=== PATIENT | male | born 1950 | race African-American/Black ===

== ENCOUNTER 2016-10-15 05:36 | Day surgery (SDC) | payer MEDICARE, BC ==
[~2016-10-15] VITALS: Ht 181.6 cm; Wt 137.4 kg
[2016-10-15] VITALS (12 sets, daily range): BP systolic 127–145; BP diastolic 61–75
[~2016-10-15 05:36] MED LIST: ATENOLOL50 MG ORAL; ATORVASTATIN CA20 MG ORAL; DILTIAZEM ER300 MG PO
[2016-10-15] MEDS ORDERED: ceFAZolin sod 1 GM in NS 55 ML IVPB ONE (07:00)
[2016-10-15] MEDS ORDERED: Bacitracin 50000 Units Vial ONE ×2 (07:19→09:46)
[2016-10-15] MEDS ORDERED: Midazolam 2mg/2ml Inj ONE (07:30)
[2016-10-15] MEDS ORDERED: Sterile Water Irrig 1000ml IRRIG ONE (07:30)
[2016-10-15] MEDS ORDERED: NS Irrig 1000ml ONE (07:30)
[2016-10-15] MEDS ORDERED: LR 1000ml ONE (07:30)
[2016-10-15] MEDS ORDERED: fentaNYL 100 mcg/2 mL IV ONE (07:30)
[2016-10-15] MEDS ORDERED: Propofol 10mg/ml 20ml IV ONE (07:30)
--- NOTE | 2016-10-15 07:50 | Pre-Procedure Note/Attestation ---
Pre-Procedure Note/Attestation Complete Prior to Procedure Planned Procedure: not applicable Procedure Narrative: REMOVAL OF SEMIRIGID AND SUB CUTANEOUS PENILE IMPLANT AND INSERTION OF INFLATABLE PENILE IMPLANT Indications for Procedure Pre-Operative Diagnosis: NON FUNCTIONING PENILE IMPLANT, SEVERE ERECTILE DYSFUNCTION Attestation I attest that I discussed the nature of the procedure; its benefits; risks and complications; and alternatives (and the risks and benefits of such alternatives ), prior to the procedure, with the patient (or the patient's legal kiosk sales representative). I attest that, if there was a reasonable possibility of needing a blood transfusion, the patient (or the patient's legal kiosk sales representative) was given the [place] [employer] standardized written summary, pursuant to the Trev Hilton Blood Safety Act ([place] Health and Safety Code # 1645, as amended). I attest that I re-evaluated the patient just prior to the surgery and that there has been no change in the patient's H&P, except as documented below: Ryan Barcenas MD Oct 15, 2016 07:50
[2016-10-15] MEDS ORDERED: LR 1000ml 1,000 ML IVLG SCH (07:51)
--- NOTE | 2016-10-15 07:57 | Anethesia Preoperative Eval ---
Anesthesia Pre-op PMH/ROS General Date of Evaluation: Oct 15, 2016 Time of Evaluation: 07:20 Anesthesiologist: Juan ASA Score: ASA 3 Mallampati Score Class I : Soft palate, uvula, fauces, pillars visible Class II: Soft palate, uvula, fauces visible Class III: Soft palate, base of uvula visible Class IV: Only hard plate visible Mallampati Classification: Class II Surgeon: Narinder Diagnosis: Erectile dysfunction Surgical Procedure: Replacement of penile implant Family History: no anesthesia problems Allergies: Coded Allergies: PENICILLINS (Verified Allergy, Unknown, 10/12/16) ITCH Medications: see eMAR Past Medical History Cardiovascular: Reports: HTN, Denies: CAD, [place], arrhythmia, other, valve dz Pulmonary: Reports: KASIA, Denies: COPD, asthma, other Gastrointestinal/Genitourinary: Denies: CRI, ESRD, GERD, other Neurologic/Psychiatric: Denies: CVA, TIA, dementia, depression/anxiety, other Endocrine: Denies: DM, hypothyroidism, other, steroids HEENT: Denies: MARY'S IGLOO (L), MARY'S IGLOO (R), cataract (L), cataract (R), glaucoma, other Hematology/Immune: Denies: DVT, anemia, bleeding disorder, other Musculoskeletal/Integumentary: Reports: OA, Denies: DDD, DJD, RA, edema, other Other: obesity PMH Narrative: KASIA, obesity, HTN, hypercholesterolemia, OA PSxH Narrative: Penile implant Anesthesia Pre-op Phys. Exam Physician Exam Last Vital Signs Date Time Temp Pulse Resp B/P Pulse Ox O2 Delivery O2 Flow Rate FiO2 10/15/16 05:57 98.3 63 20 140/73 95 Room Air Constitutional: NAD Neurologic: CN 2-12 intact Cardiovascular: RRR, no M/R/G Respiratory: CTA Airway Exam Mallampati Score: Class II MO: full ROM: full Teeth: intact Anesthesia Pre-op A/P Labs WNL Studies Pre-op Studies: EKG - SR, no acute abnormality Risk Assessment & Plan Assessment: Obese, hypertensive male with KASIA Plan: GA, LMA Status Change Before Surgery: No Pre-Antibiotics Drug: Ancef Given Within 1 Hr of Incision: Yes Time Given: 07:45 AMRIK KAUR M.D. Oct 15, 2016 07:57
--- NOTE | 2016-10-15 07:58 | Immediate Post-Op Evaluation ---
Immediate Post-Op Evalulation Immediate Post-Op Evalulation Procedure: Replacement of penile implant Date of Evaluation: Oct 15, 2016 Time of Evaluation: 10:50 IV Fluids: 900 Estimated Blood Loss: 70 Urinary Output: 500 Blood Pressure Systolic: 145 Blood Pressure Diastolic: 75 Pulse Rate: 66 Respiratory Rate: 17 O2 Sat by Pulse Oximetry: 100 Temperature (Fahrenheit): 97 Pain Score (1-10): 0 Nausea: No Vomiting: No Complications No complication Patient Status: awake, patent, none Hydration Status: adequate Drug: Ancef Given Within 1 Hr of Incision: Yes Time Given: 07:45 AMRIK KAUR M.D. Oct 15, 2016 07:58
[2016-10-15] MEDS ORDERED: DiphenhydrAMINE 50mg/ml Inj IVP PRN (08:00)
[2016-10-15] MEDS ORDERED: LR 1000ml 1,000 ML IV SCH (08:00)
[2016-10-15] MEDS: Bupivacaine 0.5% Inj 30 ml vial INJ ONE ×2 (09:29→10:11)
--- NOTE | 2016-10-15 10:47 | 48 Hour Post Anesthesia Eval ---
Post Anesthesia Evaluation Procedure: Replacement of penile implant Date of Evaluation: Oct 15, 2016 Time of Evaluation: 11:15 Blood Pressure Systolic: 142 0: 74 Pulse Rate: 68 Respiratory Rate: 20 Temperature (Fahrenheit): 97 O2 Sat by Pulse Oximetry: 99 Airway: patent Nausea: No Vomiting: No Pain Intensity: 1 Hydration Status: adequate Cardiopulmonary Status: Stable Mental Status/LOC: patient returned to baseline Follow-up Care/Observations: As per surgery Post-Anesthesia Complications: No anesthetic complication Follow-up care needed: N/A AMRIK KAUR M.D. Oct 15, 2016 10:47
[2016-10-15] MEDS: Hydromorphone 0.5mg/0.5ml inj IVP PRN ×2 (11:07→11:49)
--- NOTE | 2016-10-17 12:49 | Brief Operative Note ---
Immediate Post Operative Note Operative Note Pre-op Diagnosis: NON FUNCTIONING PENILE IMPLANT, SEVERE ERECTILE DYSFUNCTION Procedure: REMOVAL OF SUBCUTANEOUS AND SEMIRIGID IMPLANT AND INSERTION OF INFLATABLE PENILE PROSTHESIS Post-op Diagnosis: SAME Post-op Diagnosis: same as pre-op Surgeon: Marcial BARCENAS Anesthesia: general Specimen: yes Complications: none Condition: stable Estimated Blood Loss: minimal Drains: SUKHWINDER Implant(s) used?: Yes Ryan Barcenas MD Oct 17, 2016 12:49
--- NOTE | 2016-10-18 00:31 | Operative Note - Dictated ---
DATE OF OPERATION: 10/15/2016 PREOPERATIVE DIAGNOSIS: Nonfunctioning semirigid penile implant. POSTOPERATIVE DIAGNOSIS: Nonfunctioning semirigid penile implant. SURGEON: Ryan Barcenas M.D. PROCEDURE: Removal of subcutaneous as well as semirigid penile prosthesis and insertion of Ambicor #18 plus 2 penile prosthesis. INDICATIONS: This patient has been known to me for many years. Originally, the patient was complaining about erectile dysfunction and insertion of the penile prosthesis after failure of medical treatment was offered to the patient. The patient decided to proceed with a semirigid penile prosthesis at that time and although an inflatable penile prosthesis also was introduced to him, he decided to go with the semirigid, which was inserted without any difficulty. Years later, due to the change in the girth of his penis and unsatisfactory girth, subcutaneous penile implant was inserted for the patient. The patient has been happy with both procedures. Recently, states that his penis bends during sexual activity and has unsatisfactory sexual activity. The removal of the semirigid as well as subcutaneous penile prosthesis and insertion of the inflatable Ambicor 2-piece penile prosthesis, possible risk, complication, alternatives, and benefits were all explained to the patient in full detail. The patient decided to proceed with the procedure. No written or verbal guarantee has been given to the patient and the patient decided to proceed with this procedure in the hospital. DESCRIPTION OF PROCEDURE: The patient was brought to the operating room and after satisfactory general anesthesia put in supine position. The genital area was prepped and draped in the routine fashion. Savage catheter #16 was inserted without difficulty and first, the suprapubic incision was made. It was deepened to the subcutaneous tissue. Points of bleeding were electrocoagulated. Previous subcutaneous penile implant was removed and sent for pathology. The area was irrigated thoroughly with triple antibiotic. A #19 Tajik drain was inserted through the stab wound on the left side and left in the suprapubic area. The area was irrigated again with triple antibiotic and closed with 3-0 Prolene and 3-0 Monocryl and 4-0 Monocryl on the skin. Attention at this point was paid to the penoscrotal incision. The incision made in that area was deepened through the subcutaneous tissue. Right and left corpus cavernosum was identified. Left side was opened and the semirigid implant was removed. Two stay stitches with 3-0 Prolene were put on the left side and 2 stay stitches were put on the right side and the implant on the right side was removed. Area was irrigated thoroughly with triple antibiotic. Attempt to dilate the area due to the scar tissue was difficult and the measurement was made and inflatable 2-piece Ambicor penile prosthesis 18 with 2 cm scouring machine operator was brought to the field and was inserted on the right side and then on the left side, the pump was inserted in the dependent portion of the scrotum. Corpus cavernosum was closed with PDS CT-2 on the right and on the left side with a protector to prevent any damage to the implant. The implant was pumped and it was identified. Due to the scar tissue, the expansion was not that much, but I will ask the patient to try to pump the implant in the future everyday. The pump was inserted in the scrotum and the area was closed with #3-0 Vicryl, subcutaneous was closed with #3-0 Vicryl, and the skin was closed with 4-0 Monocryl. Savage catheter was left indwelling. Due to the scar tissue next to the swollen corpus cavernosum and corpus spongiosum and thinness of the spongiosum, I decided to leave the Savage catheter and I asked the patient to leave it there for few weeks. The patient tolerated the procedure well. A gram of Ancef was injected by Anesthesiology at the beginning of the surgery and 80 mg was injected after insertion of the implant. Sponge and instrument counts were correct. Savage catheter was connected to the drainage bag. Dressing was applied. The patient tolerated the procedure and sent to recovery room in satisfactory condition. Ryan Barcenas M.D. DR: LISETTE JOB#: [id number] CC:
== END 2016-10-15 14:05 | disposition home or self-care (01) ==
LOC: SUR 05:36
DX: T83.410A Breakdown (mechanical) of implanted penile prosthesis, initial encounter (principal); Y83.8 Other surgical procedures as the cause of abnormal reaction of the patient, or of later complication, without mention of misadventure at the time of the procedure; Y92.89 Other specified places as the place of occurrence of the external cause; N52.9 Male erectile dysfunction, unspecified; E66.9 Obesity, unspecified; Z68.41 Body mass index [BMI] 40.0-44.9, adult; M19.90 Unspecified osteoarthritis, unspecified site; I10 Essential (primary) hypertension; G56.00 Carpal tunnel syndrome, unspecified upper limb; E78.5 Hyperlipidemia, unspecified; G47.33 Obstructive sleep apnea (adult) (pediatric); M54.5 Low back pain; J30.1 Allergic rhinitis due to pollen; H26.9 Unspecified cataract; E29.1 Testicular hypofunction; M10.9 Gout, unspecified; R10.13 Epigastric pain; Z87.442 Personal history of urinary calculi
CPT/HCPCS: 54416; C1776; J0690; J1170; J2250; J2405; J2704; J3010; J3490; J7120; 94003; 94150